=== PATIENT | male | born 1990 | race Hispanic/Latino ===

== ENCOUNTER 2018-05-08 11:01 | Inpatient (IN) | payer OTHER, SELFPAY ==
[2018-05-08 11:28] LABS: #Basophils 0.1 thou/uL (0.0-0.2); #Eosinphils 0.5 thou/uL (0.0-0.7); #Lymphocytes 0.9 thou/uL (1.20-3.40); #Monocytes 0.7 thou/uL (0.11-0.59); #Neutrophils 5.2 thou/uL (1.40-6.50); %Basophils 1.6 % (0.0-1.0); %Eosinophils 6.4 % (0.0-10.0); %Lymphocytes 12.4 % (21.0-51.0); %Monocytes 9.5 % (0.0-10.0); %Neutrophils 70.2 % (42.0-75.0); Hemoglobin 18.1 g/dL (14.0-18.0); Mean Corpuscular HGB CONC 36.4 g/dL (32.0-36.0); Mean Corpuscular Hemoglobin 31.5 pg (27.0-31.0); Mean Corpuscular Volume 86.6 fl (80.0-94.0); Mean Platelet Volume 8.4 fL (7.4-10.4); Platelet Count 213 thou/uL (130-400); RBC Distribution Width 11.2 % (11.5-14.5); Red Blood Cell (RBC) Count 5.74 mill/uL (4.70-6.10); White Blood Cell (WBC) Count 7.5 thou/uL (4.8-10.8)
[2018-05-08] MEDS ORDERED: Acetaminophen 500 MG TAB ONE (11:39)
[2018-05-08 11:41] LABS: ALT (SGPT) 194 U/L (8-55); AST (SGOT) 98 U/L (5-34); Albumin 4.5 g/dL (3.5-5.0); Alkaline Phosphatase 120 U/L (40-150); Anion Gap 16 mmol/L (10-20); BUN (Urea Nitrogen) 9 mg/dL (8.9-20.6); Calc. Creatinine Clearance 0 mL/min (70-130); Calcium 9.5 mg/dL (7.8-10.44); Carbon Dioxide 25 mmol/L (22-29); Chloride 99 mmol/L (98-107); Estimated GFR-MDRD 68; Globulin 3.7 g/dL (2.4-3.5); Glucose 145 mg/dL (70-105); Lipase 24 U/L (8-78); Potassium 3.6 mmol/L (3.5-5.1); Protein, Total 8.2 g/dL (6.0-8.3); Sodium 136 mmol/L (136-145)
[2018-05-08] MEDS ORDERED: Ondansetron HCl/PF 4 MG/2 ML Vial ONE (12:32)
--- NOTE | 2018-05-08 12:59 | RAD ---
PA AND LATERAL CHEST X-RAY: 05/08/2018 HISTORY: Cough and fever. Nausea and vomiting. COMPARISON: None available. FINDINGS: The cardiac silhouette and pulmonary vasculature are within normal limits. The lungs are clear. The osseous structures are intact. IMPRESSION: No acute cardiopulmonary process. POS: [facility]
[2018-05-08] MEDS ORDERED: cefTRIAXone\\ROCEPHIN 2 GM VIAL ONE (13:21)
[2018-05-08] MEDS ORDERED: Sodium Chloride 0.9% 100 ML ONE (13:22)
[2018-05-08] MEDS ORDERED: Azithromycin 500 MG VIAL ONE (13:49)
[2018-05-08] MEDS ORDERED: Acetaminophen 325 MG TAB PO PRN ×2 (16:18→16:33)
[2018-05-08] MEDS ORDERED: Sodium Chloride 0.9% 1,000 ML IV SCH (16:18)
[2018-05-08 16:32] VITALS: BMI 28.3
[2018-05-08] MEDS ORDERED: Pepto Bismol Chew TAB PO PRN (16:33)
[2018-05-08] MEDS ORDERED: Mag-Al 1200 mg/1200 mg/30 ML UDCUP PO PRN (16:33)
[2018-05-08] MEDS ORDERED: Ondansetron ODT 4 MG TAB PO PRN (16:33)
[2018-05-08 18:05] LABS: HBCM Index 0.14 S/CO (0-0.79); HBSAg Index 0.15 S/CO (0-0.99); Hep A IgM AB Non-Reactive (NonReactive); Hep A IgM S/CO 0.11 S/CO (0-0.79); Hep B Surf Ag Non-Reactive S/CO (NonReactive); Hep C IgG Ab Non-Reactive (NonReactive); Hep C Index 0.11 S/CO (0-0.79); Hepatitis B Core IGM Abs Non-Reactive (NonReactive)
[2018-05-08] MEDS: Benzonatate 100 MG CAP PO PRN ×2 (18:10→22:16)
[2018-05-08] MEDS: Sodium Chloride 0.9% 1,000 ML IV SCH ×2 (18:12→19:38)
[2018-05-08] MEDS ORDERED: Ondansetron HCl/PF 4 MG/2 ML Vial IVP PRN (18:30)
[2018-05-08] MEDS ORDERED: Ondansetron ODT 4 MG TAB SL PRN (18:30)
--- NOTE | 2018-05-08 22:28 | HP ---
PRIMARY CARE PHYSICIAN: The patient currently does not have a primary care physician. CHIEF COMPLAINT: Fever and cough, congestion, nausea, and vomiting. HISTORY OF PRESENT ILLNESS: Mr. Hanks is a pleasant, 28-year-old gentleman that has no significant p ast medical history, who says that he woke up Monday morning with body aches all over. As the day pr ogressed, the body aches got worse. He started having fever and cough, which was productive of phleg m. He said that the phlegm was yellow-brown and green in color, sometimes it was white, and it would taste bad. He said he had such a large amount of phlegm coming up that it would make him vomit. is went on through much of the day. He also was feeling cold and hot. He started taking some Theraf michelle and Vicks as well as Nyquil, does try to get better, but it did not. He has continued to vomit an d could not hold anything down. He started to feel weaker and weaker, and as a result, he came to [facility] emergency room for evaluation. In the ER, he was evaluated and had a chest x-ray done, which was e ssentially negative, but had some hilar fullness. He had a normal CBC except for slightly elevated h emoglobin; however, he was found to have a rectal temperature of 102 and also had a heart rate in the 130s, and for this reason, he is being admitted for sepsis syndrome. The patient denies any chest p ain. He has not had any shortness of breath. He has not felt dizzy or lightheaded. He denies any n allyson pain, no headache. He has had a runny nose and congestion, and he also notes some diarrhea. REVIEW OF SYSTEMS: CONSTITUTIONAL: He has had subjective fever and chills. No night sweats or weig ht loss. HEENT: No headache, no dizziness, no visual changes. He has had some rhinorrhea as well a s a sore throat and notices some hoarseness in his voice. There has been no neck pain. No known sofía nopathy. PULMONARY: He complains of a productive cough, but no shortness of breath, no wheezing. C ARDIOVASCULAR: He denies chest pain, no shortness of breath, no PND, no orthopnea. No lower extremi ty edema. GASTROINTESTINAL: He has had some nausea, and he has been having vomiting as well as diar tre. No blood in the stools, no hematemesis. GENITOURINARY: No urinary frequency, hematuria, no h esitancy. NEUROLOGIC: No focal weakness, numbness, no seizures. PSYCHIATRIC: No symptoms of anxie ty or depression. SKIN AND INTEGUMENT: No skin changes. No rash. PAST MEDICAL HISTORY: Negative. PAST SURGICAL HISTORY: Negative. ALLERGIES: Are to BACTRIM. FAMILY HISTORY: No history of any inheritable diseases. SOCIAL HISTORY: He says he drinks daily about 1 or 2 glasses of whiskey with dinner a day. He says he does not feel he has a problem with alcohol or does not feel he needs to quit. He is a nonsmoker. He is single. No children. He works as the director of [employer]. MEDICATIONS: Include Nyquil and Theraflu. PHYSICAL EXAMINATION: GENERAL: He is alert and oriented. He appears to be in no acute distress. VITAL SIGNS: Blood pressure was 125/86, heart rate was 101, respiratory rate of 18, O2 saturation wa s 93% on room air, temperature was 98.9. HEENT: His pupils are equal, round, and reactive. Extraocular muscles are intact. His sclerae are anicteric. Throat: There was no erythema, no exudates. NECK: No adenopathy, no bruits. LUNGS: His lungs are clear to auscultation. I did not appreciate any wheezing or rales or rhonchi. CARDIOVASCULAR: He had a normal S1 and S2. No S3 or S4. No murmurs, clicks or rubs. ABDOMEN: Soft, it is nontender, nondistended. Positive for bowel sounds. There is no rebound or gu arding. EXTREMITIES: There is no clubbing, cyanosis, no edema. NEUROLOGIC: Neurologically, the exam is nonfocal. His muscle strength is 5/5 in both his upper and lower extremities. LABORATORY DATA AND DIAGNOSTIC STUDIES: Laboratory results: White blood cell count 7.5, hemoglobin 18.1, hematocrit is 49.7, platelet count is 213. Sodium 136, potassium 3.6, chloride is 99, CO2 is 2 5, BUN of 9, creatinine 1.25, glucose is 145. Lactic acid was 2.5. Bilirubin was 2.0. AST is 98, A LT is 94. Chest x-ray was negative for any acute cardiopulmonary process. ASSESSMENT AND PLAN: This is a pleasant, 28-year-old gentleman, who presents with fever, cough, and congestion, which is productive. Chest x-ray is clear, and there is no significant white blood cell count. However, he did have high fever and tachycardia. I suspect he has an upper respiratory infec tion. This likely explains the slight elevation in his liver function test as well. He will be monika tored in the hospital overnight. We will treat him with antibiotics to cover for community-acquired acquired organisms for respiratory infection. Repeat his liver function test in the a.m. as well as a hepatitis panel. Should his temperature improve as well as his heart rate, then likely he can be d ischarged home on oral antibiotics in the a.m.
[2018-05-09] MEDS: Cepastat Lozenges 1 LOZ PO PRN ×2 (00:15→03:22)
[2018-05-09] MEDS: Sodium Chloride 0.9% 1,000 ML IV SCH (03:22)
[2018-05-09 04:46] LABS: #Eosinphils 0.7 thou/uL (0.0-0.7); #Lymphocytes 1.8 thou/uL (1.20-3.40); #Monocytes 0.7 thou/uL (0.11-0.59); #Neutrophils 2.2 thou/uL (1.40-6.50); %Basophils 0.7 % (0.0-1.0); %Eosinophils 13.4 % (0.0-10.0); %Lymphocytes 33.3 % (21.0-51.0); %Monocytes 13.2 % (0.0-10.0); %Neutrophils 39.4 % (42.0-75.0); Hemoglobin 16.1 g/dL (14.0-18.0); Mean Corpuscular HGB CONC 35.5 g/dL (32.0-36.0); Mean Corpuscular Hemoglobin 32.7 pg (27.0-31.0); Mean Corpuscular Volume 92.1 fL (78.0-98.0); Mean Platelet Volume 8.3 fL (7.4-10.4); Platelet Count 174 thou/uL (130-400); Red Blood Cell (RBC) Count 4.93 mill/uL (4.70-6.10); White Blood Cell (WBC) Count 5.5 thou/uL (4.8-10.8)
[2018-05-09 04:59] LABS: Anion Gap 12 mmol/L (10-20); BUN (Urea Nitrogen) 6 mg/dL (8.9-20.6); Calc. Creatinine Clearance 153 mL/min (70-130); Calcium 8.8 mg/dL (7.8-10.44); Carbon Dioxide 25 mmol/L (22-29); Chloride 105 mmol/L (98-107); Estimated GFR-MDRD Greater than 90; Glucose 88 mg/dL (70-105); Potassium 3.8 mmol/L (3.5-5.1); Sodium 138 mmol/L (136-145)
[2018-05-09 05:05] LABS: ALT (SGPT) 128 U/L (8-55); AST (SGOT) 49 U/L (5-34); Albumin 3.9 g/dL (3.5-5.0); Alkaline Phosphatase 98 U/L (40-150); Bilirubin, Direct 0.4 mg/dL (0.1-0.3); Protein, Total 6.9 g/dL (6.0-8.3)
[2018-05-09] MEDS ORDERED: Sodium Chloride 0.9% 10 ML ONE (08:23)
--- NOTE | 2018-05-09 10:31 | PDOC.PN ---
- Subjective Encounter Start Date: 05/09/18 Encounter Start Time: 10:30 Mr. Hanks was seen today in follow-up. He is feeling a bit better today. He still has cough, no dyspnea. - Objective Resuscitation Status: Resuscitation Status FULL:Full Resuscitation MAR Reviewed: Yes Vital Signs & Weight: Vital Signs (12 hours) Temp Pulse Resp BP Pulse Ox 05/09/18 08:00 98.3 F 81 16 135/93 H 97 05/09/18 04:00 98.7 F 87 18 137/90 98 05/09/18 00:00 98.9 F 100 18 154/97 H 94 L I&O: 05/08/18 05/09/18 05/10/18 06:59 06:59 06:59 Intake Total 3334 Output Total 200 Balance 3134 Result Diagrams: 05/09/18 03:57 05/09/18 03:57 Phys Exam - Physical Examination HEENT: PERRLA Respiratory: wheezing present + wheezing at the bases, no rales Cardiovascular: RRR, no significant murmur, no rub Gastrointestinal: soft, non-tender, positive bowel sounds Musculoskeletal: no edema Dx/Plan (1) URI (upper respiratory infection) Code(s): J06.9 - ACUTE UPPER RESPIRATORY INFECTION, UNSPECIFIED Status: Acute (2) Sepsis Code(s): A41.9 - SEPSIS, UNSPECIFIED ORGANISM Status: Acute - Plan * URI- Patient is clinically improved * Sepsis- resolved * stable for discharge home..
[2018-05-09 12:17] VITALS: BP 137/96; TEMP 98.1
--- NOTE | 2018-05-09 19:21 | DIS ---
DATE OF ADMISSION: 05/08/2018 DATE OF DISCHARGE: 05/09/2018 The patient does not have a primary care physician. DISCHARGE DISPOSITION: Home. PRIMARY DISCHARGE DIAGNOSES: 1. Upper respiratory tract infection. 2. Sepsis syndrome. DISCHARGE MEDICATIONS: Include azithromycin 250 mg p.o. daily for 4 days as well as Robitussin AC on e teaspoon q.4 hours as needed for cough. CODE STATUS: FULL CODE. ALLERGIES: SULFAMETHOXAZOLE and TRIMETHOPRIM. HOSPITAL COURSE: Mr. Hanks is a pleasant 28-year-old gentleman who presented to the emergency room c omplaining of cough and congestion, as well as quite a bit of phlegm production as well as high fever . He was evaluated in the emergency room and due to the elevated temperature and heart rate, there w as concern for possible sepsis. He was admitted and started on IV fluids as well as antibiotics to c over for community-acquired respiratory organisms. He looked quite a bit better the following day. He was afebrile. His heart rate was in the 80s. He was satting 97% on room air and ambulatory and f or this reason, he will be discharged home. We will allow him to be off work for a couple of more da ys to recuperate and can return to work on Monday, and also to follow up with his primary care physic jenna in a couple of weeks. He will need to establish one and follow up in a couple of weeks.
== END 2018-05-09 12:33 | disposition home or self-care (01) | DRG 872 ==
LOC: SCSER 11:01 → 2NO 15:36
PROVIDERS: ADMIT Internal Medicine; ATTEND Internal Medicine
DX: A41.9 Sepsis, unspecified organism (principal); J06.9 Acute upper respiratory infection, unspecified
CPT/HCPCS: 36415; 71046; 80048; 80053; 80074; 80076; 83605; 83690; 85025; 87040; 93005; 94640; 96361; 96365; 96367; 96375; A4216; J0456; J0696; J2405; J7050; J7620

== ENCOUNTER 2022-04-26 09:29 | Emergency (ER) | payer OTHER, SELFPAY ==
[~2022-04-26 09:29] MED LIST: Iopamidol-370 76% 500 ML 1 ML ONE
[2022-04-26] MEDS ORDERED: Ketorolac Tromethamine 30 MG/ML VIAL ONE (10:16)
[2022-04-26] MEDS ORDERED: Ondansetron PF 4 MG/2 ML Vial ONE (10:16)
[2022-04-26 10:24] LABS: Hemoglobin 17.1 g/dL (14.0-18.0); Mean Corpuscular Hemoglobin 31.4 pg (27.0-31.0); Mean Corpuscular Volume 89.9 fL (78.0-98.0); Red Blood Cell (RBC) Count 5.45 mill/uL (4.70-6.10); White Blood Cell (WBC) Count 7.4 thou/uL (4.8-10.8)
[2022-04-26 10:25] LABS: %Eosinophils 1.5 % (0.0-10.0); %Lymphocytes 18.8 % (21.0-51.0); %Monocytes 5.4 % (0.0-10.0); %Neutrophils 73.3 % (42.0-75.0); Mean Corpuscular HGB CONC 34.9 g/dL (32.0-36.0); Mean Platelet Volume 6.9 fL (7.4-10.4); Platelet Count 326 thou/uL (130-400); RBC Distribution Width 11.4 % (11.5-14.5)
[2022-04-26 10:26] LABS: #Basophils 0.1 thou/uL (0.0-0.2); #Eosinphils 0.1 thou/uL (0.0-0.7); #Lymphocytes 1.4 thou/uL (1.20-3.40); #Monocytes 0.4 thou/uL (0.11-0.59); #Neutrophils 5.4 thou/uL (1.40-6.50)
[2022-04-26 10:54] LABS: AST (SGOT) 24 U/L (5-34); Albumin 4.6 g/dL (3.5-5.0); Alkaline Phosphatase 162 U/L (40-110); Anion Gap 18 mmol/L (10-20); BUN (Urea Nitrogen) 8 mg/dL (8.9-20.6); Bilirubin, Total 1.9 mg/dL (0.2-1.2); Calc. Creatinine Clearance 0 mL/min (70-130); Calcium 9.4 mg/dL (7.8-10.44); Carbon Dioxide 21 mmol/L (22-29); Chloride 101 mmol/L (98-107); Glucose 102 mg/dL (70-105); Potassium 4.2 mmol/L (3.5-5.1); Protein, Total 8.6 g/dL (6.0-8.3); Sodium 136 mmol/L (136-145)
[2022-04-26 10:55] LABS: ALT (SGPT) 42 U/L (8-55); CK (CPK) 131 U/L (30-200); Lipase 38 U/L (8-78)
[2022-04-26] MEDS ORDERED: Morphine 4 MG/ML VIAL ONE (11:23)
[2022-04-26 12:21] LABS: Bacteria/HPF None Seen HPF (None Seen); Bilirubin Negative (Negative); Blood, Urine 1+ (Negative); Clarity Clear (Clear); Glucose, Urine (Dipstick) Normal (Negative); Ketone, Urine Negative (Negative); Leukocyte Negative Leu/uL (Negative); Nitrite Negative (Negative); Protein, Urine (Dipstick) 10 mg/dL (Neg-Trace); Squamous Epithelial None Seen HPF (0-3); Urobilinogen Normal mg/dL (Less than 2); WBC/HPF 0-3 HPF (0-3)
[2022-04-26 12:22] LABS: Specific Gravity, Urine 1.056 (1.002-1.036)
[2022-04-26 12:35] LABS: Troponin I Less than 0.010 ng/mL (< 0.028)
[2022-04-26] MEDS ORDERED: Lorazepam 2 MG/ML VIAL ONE (12:55)
== END 2022-04-26 13:57 | disposition home or self-care (01) ==
LOC: ERS 09:29
DX: R10.32 Left lower quadrant pain (principal); R00.0 Tachycardia, unspecified; Z87.442 Personal history of urinary calculi
CPT/HCPCS: 36415; 74177; 80053; 81003; 81015; 82550; 83690; 84484; 85025; 87086; 93005; 94760; 96361; 96374; 96375; J1885; J2060; J2270; J2405; Q9967